=== PATIENT | male | born 1995 | race Caucasian/White ===

== ENCOUNTER 2021-07-09 12:02 | Outpatient (CLI) | payer OTHER ==
--- NOTE | 2021-07-09 14:53 | XRay Report ---
CHEST 2 VIEWS INDICATION / CLINICAL INFORMATION: TB CLEARANCE. COMPARISON: None available. FINDINGS: SUPPORT DEVICES: None. HEART / MEDIASTINUM: No significant abnormality. LUNGS / PLEURA: No significant pulmonary or pleural abnormality. No pneumothorax. ADDITIONAL FINDINGS: No significant additional findings. IMPRESSION: 1. No acute findings. Signer Name: Monty Donohue MD Signed: 07/09/2021 2:49 PM Workstation Name: [id number] ([id number]
== END 2021-07-09 12:03 | disposition home or self-care (01) ==
LOC: XRAY 12:02
PROVIDERS: ATTEND Psychiatry & Neurology Psychiatry
DX: A15.9 Respiratory tuberculosis unspecified (principal)
CPT/HCPCS: 71046